=== PATIENT | female | born 1945 | race Caucasian/White ===

== ENCOUNTER 2019-11-28 09:51 | Day surgery (SDC) | payer MEDICARE, OTHER ==
[~2019-11-28] VITALS: Ht 170.2 cm; Wt 90.7 kg
--- NOTE | 2019-11-28 06:59 | Pre-Procedure Note/Attestation ---
Pre-Procedure Note/Attestation Complete Prior to Procedure Planned Procedure: right - Removal of cataract and placement of intraocular lens, right eye Procedure Narrative: Removal of cataract and placement of intraocular lens, right eye Indications for Procedure Pre-Operative Diagnosis: Cataract, combined, right eye Attestation I attest that I discussed the nature of the procedure; its benefits; risks and complications; and alternatives (and the risks and benefits of such alternatives ), prior to the procedure, with the patient (or the patient's legal sales service representative). I attest that, if there was a reasonable possibility of needing a blood transfusion, the patient (or the patient's legal sales service representative) was given the [place] [employer] standardized written summary, pursuant to the [place] Blood Safety Act ([place] Health and Safety Code # 1645, as amended). I attest that I re-evaluated the patient just prior to the surgery and that there has been no change in the patient's H&P, except as documented below: Juan Marion MD Nov 28, 2019 06:59
[~2019-11-28 09:51] MED LIST: BIOTIN800 MCG PO; CLONAZEPAM0.25 MG PO; MAGNESIUM250 M3 PO; POTASSIUM600 M1 PO; VITAMIN D34000 UNIT PO
[2019-11-28] MEDS ORDERED: Ciprofloxacin Opth Soln 2.5ml ONE (10:01)
[2019-11-28] MEDS ORDERED: Akten 3.5% 1ml Btl ONE (10:01)
[2019-11-28] MEDS ORDERED: Tropicamide 1% Opth 15ml Soln ONE (10:02)
[2019-11-28] MEDS ORDERED: Tobradex Opth Susp 2.5ml ONE (10:02)
[2019-11-28] MEDS ORDERED: Cyclopentolate 1% Opth Sol 2ml ONE (10:02)
[2019-11-28] MEDS ORDERED: Phenylephrine 10% Opth Soln 5ml ONE (10:02)
[2019-11-28] MEDS ORDERED: EPINEPHrine 1mg/1ml Amp ONE (10:18)
[2019-11-28] MEDS ORDERED: Lidocaine 1% MPF 10mg/ml 5ml ONE ×2 (10:18→10:33)
[2019-11-28] MEDS ORDERED: Lidocaine 4% Amp ONE (10:18)
[2019-11-28] MEDS ORDERED: Timolol 0.5% Op Soln 2.5ml ONE (10:19)
[2019-11-28] MEDS ORDERED: Pred Forte 1% Opth Susp 1ml ONE (10:19)
[2019-11-28] MEDS ORDERED: Fluorescein Strips ONE (10:19)
[2019-11-28] MEDS ORDERED: Dexamethasone 4mg/ml vial ONE ×2 (10:19→10:33)
[2019-11-28] MEDS ORDERED: BSS 500ml btl ONE (10:19)
[2019-11-28] MEDS ORDERED: LR 1000ml 1,000 ML IVLG SCH (10:19)
[2019-11-28] MEDS ORDERED: Polysporin Opth Oint 3.5gm ONE (10:19)
--- NOTE | 2019-11-28 10:19 | Anethesia Preoperative Eval ---
Anesthesia Pre-op PMH/ROS General Date of Evaluation: Nov 28, 2019 Anesthesiologist: Lino ASA Score: ASA 3 Mallampati Score Class I : Soft palate, uvula, fauces, pillars visible Class II: Soft palate, uvula, fauces visible Class III: Soft palate, base of uvula visible Class IV: Only hard plate visible Mallampati Classification: Class III Surgeon: Sanam Diagnosis: right cataract Surgical Procedure: right cataract extraction with IOL Anesthesia History: none Family History: no anesthesia problems Allergies: Coded Allergies: SULFACETAMIDE (Verified Allergy, Unknown, 11/28/19) Medications: see eMAR Patient NPO?: Yes NPO Date: Nov 28, 2019 NPO Time: 00:00 Past Medical History Cardiovascular: Denies: HTN, CAD, DC, valve dz, arrhythmia, other Pulmonary: Denies: asthma, COPD, LUTHER, other Gastrointestinal/Genitourinary: Denies: GERD, CRI, ESRD, other Neurologic/Psychiatric: Denies: dementia, CVA, depression/anxiety, TIA, other Endocrine: Denies: DM, hypothyroidism, steroids, other HEENT: Denies: cataract (L), cataract (R), glaucoma, SOBOBA (L), SOBOBA (R), other Hematology/Immune: Denies: anemia, DVT, bleeding disorder, other Musculoskeletal/Integumentary: Reports: OA, other - MS; Denies: RA, DJD, DDD, edema PSxH Narrative: tonsillectomy, left cataract Anesthesia Pre-op Phys. Exam Physician Exam see chart Constitutional: NAD Cardiovascular: RRR Respiratory: CTA Airway Exam Mallampati Score: Class III MO: limited ROM: limited Anesthesia Pre-op A/P Labs see chart Studies Pre-op Studies: EKG - sr Risk Assessment & Plan Assessment: ASA III Plan: MAC Status Change Before Surgery: No Pre-Antibiotics Drug: N/A Jeannette Manzano MD Nov 28, 2019 10:19
[2019-11-28] MEDS ORDERED: Acetylcholine Injection (OR) ONE (10:20)
[2019-11-28] MEDS ORDERED: Bupivacaine 0.75% 30ml vial INJ ONE (10:20)
[2019-11-28] MEDS ORDERED: BSS 15ml BTL ONE (10:20)
[2019-11-28] MEDS ORDERED: Povidone-Iodine 5% opth solution ONE (10:20)
[2019-11-28] MEDS ORDERED: Sodium Hyaluronate 10 mg/ml 0.85ml ONE (10:21)
[2019-11-28] MEDS: Cyclopentolate 1% Opth Sol 2ml RIGHT EYE SCH ×3 (10:24→10:50)
[2019-11-28] MEDS: Phenylephrine 10% Opth Soln 5ml RIGHT EYE SCH ×3 (10:25→10:51)
[2019-11-28] MEDS: Ciprofloxacin Opth Soln 2.5ml RIGHT EYE SCH ×3 (10:25→10:50)
[2019-11-28] MEDS: Akten 3.5% 1ml Btl RIGHT EYE SCH ×3 (10:25→10:50)
[2019-11-28] MEDS: Tropicamide 1% Opth 15ml Soln RIGHT EYE SCH ×2 (10:25→10:50)
[2019-11-28] MEDS: Tobradex Opth Susp 2.5ml RIGHT EYE SCH ×3 (10:25→10:51)
[2019-11-28 10:28] VITALS: BP 119/64
[2019-11-28] MEDS ORDERED: DiphenhydrAMINE 50mg/ml Inj IVP PRN (10:30)
[2019-11-28] MEDS ORDERED: Midazolam 2mg/2ml Inj ONE (10:33)
[2019-11-28] MEDS ORDERED: fentaNYL 100 mcg/2 mL IV ONE (10:33)
[2019-11-28] MEDS ORDERED: DiphenhydrAMINE 50mg/ml Inj ONE (10:34)
[2019-11-28] MEDS ORDERED: ATORVASTATIN CA40 MG ORAL (10:35)
[2019-11-28] MEDS ORDERED: Tetracaine 0.5% Opth 4ml Soln ONE (10:46)
[2019-11-28] MEDS ORDERED: LR 1000ml ONE (11:00)
[2019-11-28] MEDS ORDERED: NS Irrig 1000ml ONE (11:00)
[2019-11-28] MEDS ORDERED: Sterile Water Irrig 1000ml IRRIG ONE (11:00)
[2019-11-28 12:06] VITALS: BP 148/75
--- NOTE | 2019-11-28 12:06 | Discharge Instructions ---
Discharge Instructions Discharge Instructions Follow Up Orders Followup tomorrow in Dr Marion's office Continue preoperative eye drops Wear shield at all times except to place eye drops For Congestive Heart Failure Reminder Report to your physician any weight gain of 5 pounds or more in one week. Juan Marion MD Nov 28, 2019 12:06
--- NOTE | 2019-11-28 12:09 | Immediate Post-Op Evaluation ---
Immediate Post-Op Evalulation Immediate Post-Op Evalulation Procedure: right cataract extraction with iol Date of Evaluation: Nov 28, 2019 Time of Evaluation: 12:11 IV Fluids: 300 Blood Products: 0 Estimated Blood Loss: min Urinary Output: 0 Blood Pressure Systolic: 148 Blood Pressure Diastolic: 75 Pulse Rate: 75 Respiratory Rate: 16 O2 Sat by Pulse Oximetry: 99 Temperature (Fahrenheit): 97 Pain Score (1-10): 0 Nausea: No Vomiting: No Complications 0 Patient Status: awake, reacts, patent, none Hydration Status: adequate Drug: N/A Jeannette Manzano MD Nov 28, 2019 12:09
--- NOTE | 2019-11-28 12:09 | Brief Operative Note ---
Immediate Post Operative Note Operative Note Pre-op Diagnosis: Cataract, combined, right eye Procedure: Phaco PC IOL OD Post-op Diagnosis: same as pre-op Surgeon: Catherine Marion MD Anesthesiologist: Dr Hudson Anesthesia: local, MAC Specimen: none Complications: none Fluids: see chart Estimated Blood Loss: minimal Implant(s) used?: Yes - sanchez [id number] 24.5 Juan Marion MD Nov 28, 2019 12:08
--- NOTE | 2019-11-28 12:11 | 48 Hour Post Anesthesia Eval ---
Post Anesthesia Evaluation Procedure: right cataract extraction with iol Date of Evaluation: Nov 28, 2019 Airway: patent Nausea: No Vomiting: No Pain Intensity: 0 Hydration Status: adequate Cardiopulmonary Status: at baseline Mental Status/LOC: patient returned to baseline Post-Anesthesia Complications: 0 Follow-up care needed: ready to discharge Jeannette Manzano MD Nov 28, 2019 12:10
[2019-11-28 12:15] VITALS: BP 161/67
[2019-11-28 12:30] VITALS: BP 140/80
[2019-11-28 12:35] VITALS: BP 135/78
[2019-11-28 13:00] VITALS: BP 145/79
--- NOTE | 2019-11-28 22:45 | Operative Note - Dictated ---
DATE OF OPERATION: 11/28/2019 SURGEON: Juan Marion M.D. TOOL CHASER SURGEON: None. ANESTHESIOLOGIST: Dr. Hudson. ANESTHESIA: Local/standby/monitored anesthesia care. PREOPERATIVE DIAGNOSIS: Cataract, combined, right eye. POSTOPERATIVE DIAGNOSIS: Cataract, combined, right eye. PROCEDURE: 1. Phacoemulsification of cataract, right eye. 2. Placement of posterior chamber intraocular lens, right eye (Model ZCB00, 24.5, [place]). SPECIMENS: None. COMPLICATIONS: None. INDICATIONS FOR SURGERY: The patient has had the painless progressive decrease in visual acuity in the right eye secondary to cataract. The patient understands risks of surgery including infection, bleeding, need for further surgery, loss of vision, no improvement in vision, loss of the eye, loss of life, glaucoma, retinal detachment, understands these risks and elects to proceed with surgery. FINDINGS: The patient had a +2 to 3 nuclear sclerotic cataract as well as a +1 to 2 posterior subcapsular cataract. OPERATIVE NOTE: After informed consent was obtained, the patient was brought into the operating room, placed in supine position. Cardiac and respiratory monitors were attached. A time-out was performed. All criteria were met and everyone in the room agreed. The right eye was then draped and prepped in sterile manner for ocular surgery. A lid speculum was placed in the eye. A 1% lidocaine preservative-free was injected at the 9 o' clock limbus. A conjunctival peritomy from approximately 8:30 to 9:30 was made and dissected posteriorly. Paracentesis was made at approximately 12 o' clock and Shugarcaine was injected into the anterior chamber followed by Healon. The anterior chamber was then entered through the limbal incision using a 2.6 mm keratome. An anterior capsulorrhexis was then performed. Hydrodissection and hydrodelineation of the lens was then performed. The wound was then phacoemulsified using divide and conquer four-quadrant technique. Residual cortical material was then aspirated. The Healon was injected into the anterior chamber and capsular bag. The lens was taken from its package, placed into the cartridge and the tip of the cartridge was placed through the limbal incision. The lens was injected into the capsular bag and centered nicely with a Sinskey hook. Healon was aspirated from the anterior chamber and capsular bag. One 10-0 nylon interrupted suture was then placed through the limbal incision and the knot was rotated and buried. Care was taken during the entire procedure not to touch the endothelium. The wounds were checked and found to be watertight. The conjunctiva was closed with forceps cautery. The lid speculum was removed from the eye and the eye was examined and the optic and both haptics were in the capsular bag centered along the 9 o' clock to 3 o' clock meridian. The drapes were then removed from the eye and drops of Pred Forte and TobraDex were applied to the eye followed by ciprofloxacin and then Maxitrol ointment and a shield. The patient tolerated the procedure well and left the operating room awake, alert, and in stable condition. Juan Marion M.D. DR: YANET JOB#: [id number] CC:
== END 2019-11-28 13:00 | disposition home or self-care (01) ==
LOC: SUR 09:51
DX: H25.11 Age-related nuclear cataract, right eye (principal); H25.041 Posterior subcapsular polar age-related cataract, right eye; M19.90 Unspecified osteoarthritis, unspecified site; G35 Multiple sclerosis; Z88.2 Allergy status to sulfonamides
CPT/HCPCS: 66984; J0171; J1100; J1200; J2250; J3010; J7120; V2632; 94003; 94150